=== PATIENT | female | born 1985 | race Caucasian/White ===

== ENCOUNTER 2017-09-07 20:46 | Emergency (ER) | payer OTHER ==
[~2017-09-07] VITALS: Ht 149.9 cm; Wt 74.4 kg
[~2017-09-07 20:46] MED LIST: AMOXICILLIN875 MG PO; CEPHALEXIN500 MG PO; CHROMAGEN,1 CAPSULE PO; CLARITIN10 MG PO; DOCUSATE SODIU100 MG PO; IBUPROFEN800 MG PO; LABETALOL HCL200 MG PO; LEVOTHYROXINE75 MCG PO; METOCLOPRAMIDE10 MG PO; NECON1 EAC4 PO; NOHOMEMEDS; PERCOCET 5/31 TABLET PO; PRENATAL TABLE1 EAC3 PO; PROPRANOLOL HCL20 MG PO
[2017-09-07 20:50] VITALS: BP 128/80
[2017-09-07 21:17] LABS: HEMATOCRIT 32.3 % (36.0-46.0); HEMOGLOBIN 10.2 G/DL (11.9-15.5); MCH 25.5 PG (29.0-34.0); MCHC 31.6 G/DL (30.0-36.0); MCV 80.8 FL (83-99); PLATELET COUNT 292 K/uL (156-360); RBC DIS.WIDTH-CV 17.3 % (11.8-14.6); RBC DIS.WIDTH-SD 50.6 % (39-53)
[2017-09-07 21:29] LABS: CHLORIDE 107 mEq/L (99-109); POTASSIUM 3.6 mEq/L (3.7-5.4); SODIUM 138 mEq/L (136-147)
[2017-09-07 21:30] LABS: GLUCOSE 102 mg/dL (70-99)
[2017-09-07 21:34] LABS: CREATININE 0.8 mg/dL (0.6-1.3); GFR ESTIMATE (CALCULATED) > 59 mL/min/
[2017-09-07 21:35] LABS: UREA NITROGEN (BUN) 9 mg/dL (9-23)
[2017-09-08 00:42] LABS: ALBUMIN 4.2 g/dL (3.2-4.8)
[2017-09-08 00:45] LABS: TOTAL PROTEIN 7.5 g/dL (6.4-8.3)
[2017-09-08 00:47] LABS: TOTAL BILIRUBIN 0.2 mg/dL (0.0-1.0)
[2017-09-08 00:48] LABS: ALKALINE PHOSPHATASE 89 IU/L (3-129)
[2017-09-08 00:50] LABS: AST (GOT) 21 IU/L (2-34); DIRECT BILIRUBIN 0.1 mg/dL (0.0-0.3)
[2017-09-08 00:51] LABS: ALT (GPT) 17 IU/L (3-49); LIPASE 25 U/L (1.0-51.0)
[2017-09-08 01:03] LABS: APPEARANCE CLEAR ((CLEAR)); BILIRUBIN NEGATIVE; BLOOD NEGATIVE; COLOR STRAW ((YELLOW)); GLUCOSE (STRIP) NEGATIVE; KETONES NEGATIVE; LEUKOCYTES NEGATIVE; NITRITE NEGATIVE; PROTEIN (STRIP) NEGATIVE; SPECIFIC GRAVITY 1.008 (1.000-1.030); UCUL ADDED? NO; UROBILINOGEN 0.2 MG/DL (0.2-1.0)
== END 2017-09-08 02:36 | disposition home or self-care (01) ==
LOC: EME 20:46
PROVIDERS: Emergency Medicine
DX: K62.5 Hemorrhage of anus and rectum (principal); R19.7 Diarrhea, unspecified; R10.30 Lower abdominal pain, unspecified; K64.4 Residual hemorrhoidal skin tags; I10 Essential (primary) hypertension; E03.9 Hypothyroidism, unspecified; Z79.3 Long term (current) use of hormonal contraceptives; Z87.891 Personal history of nicotine dependence
CPT/HCPCS: 74177; 80048; 80076; 81003; 83690; 85027; 86850; 86900; 86901; 87506; 99281; 99284; J7030

== ENCOUNTER 2017-09-10 09:23 | Emergency (ER) | payer OTHER ==
[~2017-09-10] VITALS: Ht 149.9 cm; Wt 73.8 kg
[2017-09-10 10:20] LABS: HEMATOCRIT 32.1 % (36.0-46.0); HEMOGLOBIN 10.1 G/DL (11.9-15.5); MCH 25.2 PG (29.0-34.0); MCHC 31.5 G/DL (30.0-36.0); PLATELET COUNT 278 K/uL (156-360); RBC DIS.WIDTH-CV 17.4 % (11.8-14.6); RBC DIS.WIDTH-SD 51.2 % (39-53); RED BLOOD COUNT 4.01 M/uL (3.80-5.20); WHITE BLOOD COUNT 6.8 K/uL (4.1-10.2)
[2017-09-10 10:28] LABS: CHLORIDE 107 mEq/L (99-109); POTASSIUM 3.8 mEq/L (3.7-5.4); SODIUM 139 mEq/L (136-147)
[2017-09-10 10:30] LABS: GLUCOSE 92 mg/dL (70-99)
[2017-09-10 10:34] LABS: CREATININE 0.7 mg/dL (0.6-1.3); GFR ESTIMATE (CALCULATED) > 59 mL/min/
[2017-09-10 10:35] LABS: UREA NITROGEN (BUN) 8 mg/dL (9-23)
[2017-09-10 13:14] VITALS: BP 125/81
== END 2017-09-10 13:14 | disposition home or self-care (01) ==
LOC: EME 09:23
DX: K62.5 Hemorrhage of anus and rectum (principal); R10.30 Lower abdominal pain, unspecified; D64.9 Anemia, unspecified; E03.9 Hypothyroidism, unspecified; I10 Essential (primary) hypertension; Z80.0 Family history of malignant neoplasm of digestive organs; F17.200 Nicotine dependence, unspecified, uncomplicated
CPT/HCPCS: 80048; 85027; 86850; 86900; 86901; 99281; 99284

== ENCOUNTER → 2017-12-20 | Outpatient (CLI) | payer OTHER | END | disposition home or self-care (01) | LOC: CDC 09:52 | DX: I10 Essential (primary) hypertension (principal) | CPT/HCPCS: 93000 ==

== ENCOUNTER 2018-01-29 10:39 | Emergency (ER) | payer OTHER ==
[~2018-01-29] VITALS: Ht 149.9 cm; Wt 82.0 kg
[2018-01-29] MEDS ORDERED: AUGMENTIN875 MG PO (11:05)
[2018-01-29 11:53] VITALS: BP 131/80
== END 2018-01-29 11:54 | disposition home or self-care (01) ==
LOC: EME 10:39
DX: O9A.212 Injury, poisoning and certain other consequences of external causes complicating pregnancy, second trimester (principal); S61.251A Open bite of left index finger without damage to nail, initial encounter; W55.01XA Bitten by cat, initial encounter; Z3A.24 24 weeks gestation of pregnancy; Z23 Encounter for immunization; Z20.3 Contact with and (suspected) exposure to rabies; Z29.14 Encounter for prophylactic rabies immune globulin
CPT/HCPCS: 99281; 99283

== ENCOUNTER 2018-02-02 19:33 | Emergency (ER) | payer OTHER ==
[~2018-02-02] VITALS: Ht 149.9 cm; Wt 82.0 kg
[~2018-02-02 19:33] MED LIST changes: +AUGMENTIN875 MG PO
[2018-02-02 21:58] VITALS: BP 136/87
== END 2018-02-02 22:07 | disposition home or self-care (01) ==
LOC: EME 19:33
PROC: 3E0234Z Introduction of Serum, Toxoid and Vaccine into Muscle, Percutaneous Approach (ICD-10-PCS; principal; 2018-02-02)
DX: O9A.212 Injury, poisoning and certain other consequences of external causes complicating pregnancy, second trimester (principal); T14.8XXD Other injury of unspecified body region, subsequent encounter; W55.01XD Bitten by cat, subsequent encounter; Z23 Encounter for immunization; Z3A.24 24 weeks gestation of pregnancy
CPT/HCPCS: 99281; 99283